=== PATIENT | female | born 1985 | race Caucasian/White ===

== ENCOUNTER 2016-07-22 20:19 | Emergency (ER) | payer OTHER ==
--- NOTE | 2016-07-30 21:19 | ER ---
ADMIT: 07/22/2016 RM/LOC: ER [facility] MR#: [id number] [facility] [id number] MARINO CASPER [address] [place] [address] Emergency Room Report SEX: F AGE: 30 : 1985 DATE: 07/22/2016 ADDENDUM: CHIEF COMPLAINT: Laceration to right 5th finger. HISTORY OF PRESENT ILLNESS: This is a 30-year-old, who works at [employer]. She was trying to pick a 5-pound bucket and the bucket slipped and cut the just the tip. Dermabond was placed on the wound. I told her to keep it clean and dry, use Motrin, Tylenol, ice for pain. Follow up as needed. HARINDER Pérez / Luis Enrique Lino MD / candelaria JOB #: [id number] CC: Luis Enrique Lino MD, Attending Physician Best Andre MD, Family Physician
== END 2016-07-22 21:00 | disposition home or self-care (01) ==
LOC: ER 20:19
PROC: 0HQFXZZ Repair Right Hand Skin, External Approach (ICD-10-PCS; principal; 2016-07-22)
DX: S61.216A Laceration without foreign body of right little finger without damage to nail, initial encounter (principal); Z23 Encounter for immunization; W45.8XXA Other foreign body or object entering through skin, initial encounter; Y92.69 Other specified industrial and construction area as the place of occurrence of the external cause